=== PATIENT | male | born 1975 | race Caucasian/White ===

== ENCOUNTER 2019-03-11 12:19 | Emergency (ER) | payer BC ==
[2019-03-11 12:42] VITALS: BP 122/83
[2019-03-11 13:05] LABS: ANION GAP 13.6; CHLORIDE,CL 105 mmol/L (101-111); SODIUM,NA 138 mmol/L (135-145)
[2019-03-11] MEDS ORDERED: Aspirin 81 MG Tab.Chew PO ONE (13:13)
--- NOTE | 2019-03-11 13:23 | EDM.PDOC ---
ED HPI GENERAL MEDICAL PROBLEM - General Chief Complaint: Chest Pain Stated Complaint: TIGHTNESS IN CHEST [id number] Time Seen by Provider: 03/11/19 13:10 Source of Information: Reports: Patient History Limitations: Reports: No Limitations - History of Present Illness INITIAL COMMENTS - FREE TEXT/NARRATIVE: This 43 yo male patient reports to the ED with tightness in his chest and neck. 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 Throughout the night, the patient has experienced increased back pain. Today, the patient was leaving the gas station when he experienced upper anterior chest tightness that went into his neck. The patient reports he continued to have discomfort with deep breathing. The patient also reports a cough and some soreness in his throat. Onset Date: 03/10/19 Duration: Constant Location: Reports: Neck, Chest Quality: Reports: Ache, Sharp Severity: Moderate Improves with: Reports: Rest Worsens with: Reports: Breathing (deep ) Context: Reports: Other Associated Symptoms: Reports: Chest Pain, Cough, Syncope (near) Chest Pain Score (Numeric/FACES): 3 - Related Data Allergies Allergy/AdvReac Type Severity Reaction Status Date / Time No Known Allergies Allergy Verified 03/11/19 12:42 Home Meds: Home Meds Ibuprofen 200 mg PO ASDIRECTED PRN 05/23/16 [History] Escitalopram Oxalate 10 mg PO DAILY 03/11/19 [History] Past Medical History HEENT History: Reports: None Cardiovascular History: Reports: SOB on Exertion Respiratory History: Reports: SOB Gastrointestinal History: Reports: None Genitourinary History: Reports: None Musculoskeletal History: Reports: None Neurological History: Reports: None Psychiatric History: Reports: Anxiety Endocrine/Metabolic History: Reports: None Hematologic History: Reports: None Immunologic History: Reports: None Oncologic (Cancer) History: Reports: None Dermatologic History: Reports: None - Infectious Disease History Infectious Disease History: Reports: Chicken Pox - Past Surgical History Head Surgeries/Procedures: Reports: None Social & Family History - Family History Family Medical History: Noncontributory - Tobacco Use Smoking Status *Q: Never Smoker Second Hand Smoke Exposure: No - Caffeine Use Caffeine Use: Reports: Coffee, Soda - Recreational Drug Use Recreational Drug Use: No ED ROS GENERAL - Review of Systems Review Of Systems: ROS reveals no pertinent complaints other than HPI. ED EXAM, GENERAL - Physical Exam Exam: See Below Exam Limited By: No Limitations General Appearance: Alert, WD/WN, Moderate Distress Eye Exam: Bilateral Eye: EOMI, Normal Inspection, PERRL Ears: Normal External Exam, Normal Canal, Hearing Grossly Normal, Normal TMs Nose: Normal Inspection, Normal Mucosa, No Blood Throat/Mouth: Normal Inspection, Normal Lips, Normal Teeth, Normal Gums, Normal Oropharynx, Normal Voice, No Airway Compromise Head: Atraumatic, Normocephalic Neck: Normal Inspection, Supple, Non-Tender, Full Range of Motion Respiratory/Chest: No Respiratory Distress, Lungs Clear, Normal Breath Sounds, No Accessory Muscle Use, Chest Non-Tender Cardiovascular: Normal Peripheral Pulses, Regular Rate, Rhythm, No Edema, No Gallop, No JVD, No Rub, Systolic Murmur GI/Abdominal: Normal Bowel Sounds, Soft, Non-Tender, No Organomegaly, No Distention, No Abnormal Bruit, No Mass (Male) Exam: Deferred Rectal (Males) Exam: Deferred Back Exam: Normal Inspection, Full Range of Motion, NT Extremities: Normal Inspection, Normal Range of Motion, Non-Tender, Normal Capillary Refill, No Pedal Edema Neurological: Alert, Oriented, CN II-XII Intact, Normal Cognition, Normal Gait, Normal Reflexes, No Motor/Sensory Deficits Psychiatric: Normal Affect, Normal Mood Skin Exam: Warm, Dry, Intact, Normal Color, No Rash Lymphatic: No Adenopathy Course - Vital Signs Last Recorded V/S: Last Vital Signs Temp 36.1 C 03/11/19 12:38 Pulse 70 03/11/19 12:38 Resp 16 03/11/19 12:38 BP 122/83 03/11/19 12:38 Pulse Ox 99 03/11/19 12:38 - Orders/Labs/Meds Orders: Active Orders 24 hr Category Date Time Status EKG Documentation Completion [RC] URGENT Care 03/11/19 12:29 Active Labs: Laboratory Tests 03/11/19 03/11/19 Range/Units 12:38 12:38 WBC 8.8 (5.0-10.0) 10^3/uL RBC 4.45 L (4.6-6.2) 10^6/uL Hgb 13.6 L (14.0-18.0) g/dL Hct 39.3 L (40.0-54.0) % MCV 88.3 (80-100) fL MCH 30.6 (27.0-34.0) pg MCHC 34.6 (33.0-35.0) g/dL Plt Count 268 (150-450) 10^3/uL Neut % (Auto) 66.4 (42.2-75.2) % Lymph % (Auto) 24.0 (20.5-50.1) % Mercer % (Auto) 7.3 (2-8) % Eos % (Auto) 2.1 (1.0-3.0) % Baso % (Auto) 0.2 (0.0-1.0) % Sodium 138 (135-145) mmol/L Potassium 3.6 (3.6-5.0) mmol/L Chloride 105 (101-111) mmol/L Carbon Dioxide 23.0 (21.0-31.0) mmol/L Anion Gap 13.6 BUN 16 (7-18) mg/dL Creatinine 1.1 (0.6-1.3) mg/dL Est Cr Clr Drug Dosing 93.08 mL/min Estimated GFR (MDRD) > 60 BUN/Creatinine Ratio 14.54 Glucose 93 (74-105) mg/dL Calcium 8.9 (8.4-10.2) mg/dl Total Bilirubin 0.8 (0.2-1.0) mg/dL AST 24 (10-42) IU/L ALT 17 (10-60) IU/L Alkaline Phosphatase 59 (42-121) IU/L Troponin I 0.02 (0.00-0.02) ng/ml Total Protein 7.1 (6.7-8.2) g/dl Albumin 4.2 (3.2-5.5) g/dl Globulin 2.9 Albumin/Globulin Ratio 1.45 Meds: Medications Discontinued Medications Generic Name Dose Route Start Last Admin Trade Name Freq PRN Reason Stop Dose Admin Aspirin 324 mg 03/11/19 13:13 03/11/19 13:17 Aspirin PO 03/11/19 13:14 324 mg ONETIME ONE Administration Departure - Departure Time of Disposition: 14:15 Disposition: Home, Self-Care 01 Condition: Fair Clinical Impression: Nonspecific chest pain Chest wall muscle strain Qualifiers: Encounter type: initial encounter Qualified Code(s): S29.011A - Strain of muscle and tendon of front wall of thorax, initial encounter Instructions: Nonspecific Chest Pain, [id number], Chest Wall Pain, Easy-to- Read Forms: ED Department Discharge Care Plan Goals: The patient was advised of the examination, EKG, lab and x-ray results during the visit. The patient was given an oral dose of Aspirin while in the ED. The patient was encouraged to continue to monitor for any additional symptoms. If the patient has any additional symptoms or further concerns, the patient should either return to the emergency department or visit his primary care facility. - My Orders Last 24 Hours: My Active Orders 03/11/19 12:29 EKG Documentation Completion [RC] URGENT - Assessment/Plan Last 24 Hours: My Active Orders 03/11/19 12:29 EKG Documentation Completion [RC] URGENT
--- NOTE | 2019-03-11 13:48 | CR ---
Clinical history: 43-year-old male chest pain. Interpretation: Chronic coarse accentuation of bronchovascular markings unchanged except for technique since 01 November 2010. Normal cardiac silhouette and bony thorax. No new signs of alveolar edema or dependent pleural effusion. No new lung mass, hilar lymphadenopathy or focal lobar pneumonia. No atelectasis/collapse. No pneumothorax. CONCLUSION: No acute new cardiopulmonary abnormality (mild pectus lower anterior chest wall).
== END 2019-03-11 14:33 | disposition home or self-care (01) ==
LOC: DL.ED 12:19
DX: S29.011A Strain of muscle and tendon of front wall of thorax, initial encounter (principal); F41.9 Anxiety disorder, unspecified; X50.9XXA Other and unspecified overexertion or strenuous movements or postures, initial encounter; Z79.899 Other long term (current) drug therapy
CPT/HCPCS: 36415; 71046; 80053; 84484; 85025; 93005; 99285; A9270

== ENCOUNTER 2022-12-31 05:31 | Day surgery (SDC) | payer BC ==
[2022-12-31] MEDS ORDERED: fentaNYL 100 MCG/2 ML SDV IV ONE ×7 (05:32→06:45)
[2022-12-31] MEDS ORDERED: Midazolam 1 MG/ML 2 ML SDV IV ONE ×7 (05:32→06:39)
[2022-12-31] MEDS ORDERED: Dextrose 5%-0.45% NaCl 1,000 ML IV SCH (05:55)
[2022-12-31] MEDS ORDERED: Midazolam 1 MG/ML 2 ML SDV ONE (06:12)
[2022-12-31] MEDS ORDERED: fentaNYL 100 MCG/2 ML SDV ONE (06:12)
[2022-12-31 08:41] VITALS: BP 129/89; PULSE 73
== END 2022-12-31 08:45 | disposition home or self-care (01) ==
LOC: DL.ENDO 05:31
PROVIDERS: ATTEND Internal Medicine Gastroenterology
DX: D12.5 Benign neoplasm of sigmoid colon (principal); K21.9 Gastro-esophageal reflux disease without esophagitis; E66.9 Obesity, unspecified; Z68.30 Body mass index [BMI] 30.0-30.9, adult
CPT/HCPCS: 45385; J2250; J3010; J7042